=== PATIENT | female | born 1965 | race Caucasian/White ===

== ENCOUNTER 2016-05-15 16:18 | Emergency (ER) | payer BC ==
--- NOTE | 2016-05-15 17:36 | DIAGNOSTIC IMAGING REPORT ---
PROCEDURE: XR ABDOMEN 1 VIEW UPRIGHT INDICATION: DIARRHEA TECHNIQUE: AP upright view. COMPARISON: CT of the/pelvis/abdomen 10/05/2011 FINDINGS: Cholecystectomy. Mild residual stool in the ascending colon. Mild gaseous distention of the bowel in the left hemiabdomen. There is no free air, mass or suspicious calcifications. Bones are unremarkable. IMPRESSION: 1. Nonspecific bowel gas pattern 2. Cholecystectomy
--- NOTE | 2016-05-15 17:37 | DIAGNOSTIC IMAGING REPORT ---
PROCEDURE: XR SINUSES LESS THAN 3 VIEWS INDICATION: MAXILLARY PRESSURE TECHNIQUE: Single cuadra view. COMPARISON: None. FINDINGS: Paranasal sinuses are clear. IMPRESSION: 1. Normal sinuses.
--- NOTE | 2016-05-15 17:37 | DIAGNOSTIC IMAGING REPORT ---
PROCEDURE: XR SINUSES LESS THAN 3 VIEWS INDICATION: MAXILLARY PRESSURE TECHNIQUE: Single cuadra view. COMPARISON: None. FINDINGS: Paranasal sinuses are clear. IMPRESSION: 1. Normal sinuses.
--- NOTE | 2016-05-15 18:34 | ED NURSING NOTES ---
Clinical Report - Nurses Formerly [facility] [address] [place] [address] 05/15/2016 16:18 Patient: SIM BRITT TRIAGE Triage time 16:34. Acuity: LEVEL 3. Chief Complaint: SINUS CONGESTION and (Headache, diarrhea and "feel bloated"). Alert. No acute distress. --16:42 Martha Chan R.N. 16:42 05/15/16. BP: 176/68. HR: 80. RR: 20. O2 saturation: 100%. Temp: 98.2 F. Pain level now: 10/29. --16:44 Martha Chan R.N. Weight: 62.1 kg stated. Height/Length: 62 inches Per Patient. BMI: 25.1. --16:36 Martha Chan R.N. Medications HumaLOG Subcutaneous per sliding scale (1 unit drops BS by 200 pts). Lantus Subcutaneous 15units , every AM. --16:39 Martha Chan R.N. Lyrica Oral (Capsule 75 mg) 1 capsule, bid . --16:42 Martha Chan R.N. Allergies Demerol. plastic tape . Reglan. --16:39 Martha Chan R.N. Medication/allergy information source: the patient. --16:42 Martha Chan R.N. History Arrived by private vehicle. Historian: patient and family. Accompanied by family. Primary physician (zoila). Onset. (1 - 2 months). She has had sinus pain and a headache. 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 PAST MEDICAL HX: Immunizations: up-to-date. The patient has had a hysterectomy. SOCIAL HX: Light tobacco smoker (cigarette)- less than 1/2 a pack per day. No alcohol use or drug use. FALL RISK ASSESSMENT: Fall risk assessment completed. No fall risk identified. NUTRITIONAL RISK ASSESSMENT: The nutritional risk assessment revealed no deficiencies. FUNCTIONAL ASSESSMENT: Functional assessment: no impairments noted. LEARNING NEEDS ASSESSMENT: The learning needs assessment revealed no barriers. SKIN INTEGRITY ASSESSMENT: Skin integrity risk assessment completed. No skin integrity risk identified. --16:42 Martha Chan R.N. PROBLEMS: Headache . Hypoglycemia. TX/was on ventilator. Abdominal Pain. Vomiting. Coronary Artery Disease. Hyperventilation. Anxiety Reaction. Pleurisy. Atypical Chest Pain. Diabetes Mellitus. Osteoporosis. Fibromyalgia. --16:41 Martha Chan R.N. Hernia [RuleOut]. --16:41 Martha Chan R.N. ADDITIONAL SURGERIES: Appendectomy. Back Surgery. Breast benign cyst removed. Carpal Tunnel Surgery. Cholecystectomy. . Gallbladder Surgery. Hysterectomy. Knee Surgery. Multiple hand surgeries. Shoulder Surgery. --16:41 Martha Chan R.N. Interventions ID band on patient. To room. --16:42 Martha Chan R.N. PHYSICAL ASSESSMENT Ambulatory to room. Patient gowned. GENERAL / NEURO / PSYCH: Alert. Appears anxious. HEENT: No facial asymmetry noted. Pupils equal, round and reactive to light. RESPIRATORY: Respirations not labored. CVS: Capillary refill less than 2 seconds. SKIN: Skin is warm and dry. --16:45 Martha Chan R.N. NURSING PROGRESS NOTES Patient gowned. Head of bed elevated. Two patient identifiers checked. Call light placed in reach. Side rails up x 2. Bed placed in lowest position. Brakes of bed on. Patient ready for evaluation. --16:45 Martha Chan R.N. 16:57 05/15/2016 Site #1 started via IV in the left hand with an 22g angiocath, with aseptic technique and good blood return; one attempt. Blood drawn: rainbow set. Saline lock flushed with 10 mL saline. --16:57 Martha Chan R.N. 18:02 05/15/2016 Started bag #1 1000 mL IV Fluids IV NS (Saline); bolus of 500 mL over 30 minute(s) then at 250 mL/hr via site #1 via IV pump. Allergies verified and confirmed 5 rights. IV patency established flushed thoroughly pre- and post-medication administration. --18:09 Jessica Alejandre R.N. 18:05 05/15/2016 Toradol IVP 30 mg given. via site #1. Allergies verified and confirmed 5 rights. IV patency established site checked: no pain, redness, or swelling flushed thoroughly pre- and post-medication administration. --18:10 Jessica Alejandre R.N. 18:05 05/15/2016 Dilaudid (HYDROmorphone HCl PF) IVP 0.5 mg given. via site #1. Allergies verified, confirmed 5 rights and sedative warning given to the patient. IV patency established site checked: no pain, redness, or swelling flushed thoroughly pre- and post-medication administration. --18:10 Jessica Alejandre R.N. DISPOSITION / DISCHARGE 19:02 05/15/2016 Site #1 removed upon discharge. Pressure dressing applied. --19: Richelle Alvarez 19:05/15/2016 IV Fluids IV NS Discontinued: bag #1 discontinued upon discharge. Total amount infused: 800 mL. --19: Richelle Alvarez Departure time: 1900. Condition at departure: improved and stable. No learning barriers present. Discharge instructions provided and reviewed with the patient and spouse. Reviewed medication(s). Patient and spouse verbalized understanding. Written instructions provided in Panamanian. The patient was discharged by the physician. She was discharged home and accompanied by spouse. She left the Emergency Department ambulatory and via private vehicle. Spouse driving. --19:03 Richelle Alvarez 19:01 05/15/16. BP: 171/81. HR: 75. RR: 16. O2 saturation: 100%. Pain level now 5/10. --19:03 Richelle Alvarez. Locked/Released at 05/19/2016 8:55 by Jillian Ponce R.N.
--- NOTE | 2016-05-15 18:34 | ED NURSING NOTES ---
Clinical Report - Nurses [facility] [address] [place] [address] 05/15/2016 16:18 Patient: SIM BRITT TRIAGE Triage time 16:34. Acuity: LEVEL 3. Chief Complaint: SINUS CONGESTION and (Headache, diarrhea and "feel bloated"). Alert. No acute distress. --16:42 Martha Chan R.N. 16:42 05/15/16. BP: 176/68. HR: 80. RR: 20. O2 saturation: 100%. Temp: 98.2 F. Pain level now: 10/29. --16:44 Martha Chan R.N. Weight: 62.1 kg stated. Height/Length: 62 inches Per Patient. BMI: 25.1. --16:36 Martha Chan R.N. Medications HumaLOG Subcutaneous per sliding scale (1 unit drops BS by 200 pts). Lantus Subcutaneous 15units , every AM. --16:39 Martha Chan R.N. Lyrica Oral (Capsule 75 mg) 1 capsule, bid . --16:42 Martha Chan R.N. Allergies Demerol. plastic tape . Reglan. --16:39 Martha hCan R.N. Medication/allergy information source: the patient. --16:42 Martha Chan R.N. History Arrived by private vehicle. Historian: patient and family. Accompanied by family. Primary physician (zoila). Onset. (1 - 2 months). She has had sinus pain and a headache. 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 PAST MEDICAL HX: Immunizations: up-to-date. The patient has had a hysterectomy. SOCIAL HX: Light tobacco smoker (cigarette)- less than 1/2 a pack per day. No alcohol use or drug use. FALL RISK ASSESSMENT: Fall risk assessment completed. No fall risk identified. NUTRITIONAL RISK ASSESSMENT: The nutritional risk assessment revealed no deficiencies. FUNCTIONAL ASSESSMENT: Functional assessment: no impairments noted. LEARNING NEEDS ASSESSMENT: The learning needs assessment revealed no barriers. SKIN INTEGRITY ASSESSMENT: Skin integrity risk assessment completed. No skin integrity risk identified. --16:42 Martha Chan R.N. PROBLEMS: Headache . Hypoglycemia. OR/was on ventilator. Abdominal Pain. Vomiting. Coronary Artery Disease. Hyperventilation. Anxiety Reaction. Pleurisy. Atypical Chest Pain. Diabetes Mellitus. Osteoporosis. Fibromyalgia. --16:41 Martha Chan R.N. Hernia [RuleOut]. --16:41 Martha Chan R.N. ADDITIONAL SURGERIES: Appendectomy. Back Surgery. Breast benign cyst removed. Carpal Tunnel Surgery. Cholecystectomy. . Gallbladder Surgery. Hysterectomy. Knee Surgery. Multiple hand surgeries. Shoulder Surgery. --16:41 Martha Chan R.N. Interventions ID band on patient. To room. --16:42 Martha Chan R.N. PHYSICAL ASSESSMENT Ambulatory to room. Patient gowned. GENERAL / NEURO / PSYCH: Alert. Appears anxious. HEENT: No facial asymmetry noted. Pupils equal, round and reactive to light. RESPIRATORY: Respirations not labored. CVS: Capillary refill less than 2 seconds. SKIN: Skin is warm and dry. --16:45 Martha Chan R.N. NURSING PROGRESS NOTES Patient gowned. Head of bed elevated. Two patient identifiers checked. Call light placed in reach. Side rails up x 2. Bed placed in lowest position. Brakes of bed on. Patient ready for evaluation. --16:45 Martha Chan R.N. 16:57 05/15/2016 Site #1 started via IV in the left hand with an 22g angiocath, with aseptic technique and good blood return; one attempt. Blood drawn: rainbow set. Saline lock flushed with 10 mL saline. --16:57 Martha Chan R.N. 18:02 05/15/2016 Started bag #1 1000 mL IV Fluids IV NS (Saline); bolus of 500 mL over 30 minute(s) then at 250 mL/hr via site #1 via IV pump. Allergies verified and confirmed 5 rights. IV patency established flushed thoroughly pre- and post-medication administration. --18:09 Jessica Alejandre R.N. 18:05 05/15/2016 Toradol IVP 30 mg given. via site #1. Allergies verified and confirmed 5 rights. IV patency established site checked: no pain, redness, or swelling flushed thoroughly pre- and post-medication administration. --18:10 Jessica Alejandre R.N. 18:05 05/15/2016 Dilaudid (HYDROmorphone HCl PF) IVP 0.5 mg given. via site #1. Allergies verified, confirmed 5 rights and sedative warning given to the patient. IV patency established site checked: no pain, redness, or swelling flushed thoroughly pre- and post-medication administration. --18:10 Jessica Alejandre R.N. DISPOSITION / DISCHARGE 19:02 05/15/2016 Site #1 removed upon discharge. Pressure dressing applied. --19: Richelle Alvarez 19:05/15/2016 IV Fluids IV NS Discontinued: bag #1 discontinued upon discharge. Total amount infused: 800 mL. --19: Richelle Alvarez Departure time: 1900. Condition at departure: improved and stable. No learning barriers present. Discharge instructions provided and reviewed with the patient and spouse. Reviewed medication(s). Patient and spouse verbalized understanding. Written instructions provided in Lao. The patient was discharged by the physician. She was discharged home and accompanied by spouse. She left the Emergency Department ambulatory and via private vehicle. Spouse driving. --19:03 Richelle Alvarez 19:01 05/15/16. BP: 171/81. HR: 75. RR: 16. O2 saturation: 100%. Pain level now 5/10. --19:03 Richelle Alvarez. Locked/Released at 05/19/2016 8:55 by Jillian Ponce R.N.
--- NOTE | 2016-05-15 18:34 | ED ORDER SUMMARY ---
..... Patient: SIM BRITT OrderSheet [facility] VisitID: [id number] [address] [place] [address] 50y, F Registration Date/Time: 05/15/2016 ORDER SHEET Weight: 62.1 kg (stated) Allergies: Demerol, plastic tape , Reglan GENERAL ORDERS: Abdomen 1V Upright Urgent (17:13 05/15/2016 Vladislav MELÉNDEZ) (Ack 17:18 RKlilli) (17:27 RKlilli) Sinuses less than 3V (cuadra) Urgent (17:13 05/15/2016 Vladislav MELÉNDEZ) (Ack 17:18 Danika) (17:27 Danika) CBC w Diff Urgent (17:05/15/2016 Vladislav MELÉNDEZ) (Ack 17:18 Danika) CMP Urgent (17:05/15/2016 Vladislav MELÉNDEZ) (Ack 17:18 Danika) Lipase Urgent (17:05/15/2016 Vladislav MELÉNDEZ) (Ack 17:18 Danika) Amylase Urgent (17:13 05/15/2016 Vladislav MELÉNDEZ) (Ack 17:18 Danika) TSH Urgent (17:05/15/2016 Vladislav MELÉNDEZ) (Ack 17:18 Danika) MEDICATION ORDERS: IV FLUIDS: IV Saline Lock (16:57 05/15/2016 SRoberts R.N. per protocol) (16:57 SRoberts R.N.) IV NS : initial bolus 500 mL (1000 mL/hr), then 250 mL/hr for 2h (NOW); Routine (17:05/15/2016 Vladislav MELÉNDEZ) (18:09 SUEnestephy R.N.) Toradol IV 30 mg (NOW) (17:11 05/15/2016 Vladislav MELÉNDEZ) (18:10 SUEnebel R.N.) Dilaudid IV 0.5 mg (NOW) (17:05/15/2016 Vladislav MELÉNDEZ) (18:10 KKnebel R.N.) ORDER SHEET NOTES: [Electronically signed by Zaki Gomez MD (20:26 05/15/2016)] [Electronically signed by Jillian Ponce R.N. (08:55 05/19/2016)] [Electronically locked/signed by Jillian Ponce R.N. (08:55 05/19/2016)]
--- NOTE | 2016-05-15 18:34 | ED ORDER SUMMARY ---
..... Patient: SIM BRITT OrderSheet [facility] VisitID: [id number] [address] [place] [address] 50y, F Registration Date/Time: 05/15/2016 ORDER SHEET Weight: 62.1 kg (stated) Allergies: Demerol, plastic tape , Reglan GENERAL ORDERS: Abdomen 1V Upright Urgent (17:13 05/15/2016 Vladislav MELÉNDEZ) (Ack 17:18 RKlilli) (17:27 RKlilli) Sinuses less than 3V (cuadra) Urgent (17:13 05/15/2016 Vladislav MELÉNDEZ) (Ack 17:18 Danika) (17:27 Danika) CBC w Diff Urgent (17:05/15/2016 Vladislav MELÉNDEZ) (Ack 17:18 Danika) CMP Urgent (17:05/15/2016 Vladislav MELÉNDEZ) (Ack 17:18 Danika) Lipase Urgent (17:05/15/2016 Vladislav MELÉNDEZ) (Ack 17:18 Danika) Amylase Urgent (17:13 05/15/2016 Vladislav MELÉNDEZ) (Ack 17:18 Danika) TSH Urgent (17:05/15/2016 Vladislav MELÉNDEZ) (Ack 17:18 Danika) MEDICATION ORDERS: IV FLUIDS: IV Saline Lock (16:57 05/15/2016 SRoberts R.N. per protocol) (16:57 SRoberts R.N.) IV NS : initial bolus 500 mL (1000 mL/hr), then 250 mL/hr for 2h (NOW); Routine (17:05/15/2016 Vladislav MELÉNDEZ) (18:09 SUEnestephy R.N.) Toradol IV 30 mg (NOW) (17:11 05/15/2016 Vladislav MELÉNDEZ) (18:10 SUEnebel R.N.) Dilaudid IV 0.5 mg (NOW) (17:05/15/2016 Vladislav MELÉNDEZ) (18:10 KKnebel R.N.) ORDER SHEET NOTES: [Electronically signed by Zaki Gomez MD (20:26 05/15/2016)] [Electronically signed by Jillian Ponce R.N. (08:55 05/19/2016)] [Electronically locked/signed by Jillian Ponce R.N. (08:55 05/19/2016)]
--- NOTE | 2016-05-15 18:34 | ED CLINICAL REPORT ---
Clinical Report - Physicians/Mid Levels [facility] [address] [place] [address] 05/15/2016 16:18 Patient: SIM BRITT Time Seen: 16:59 May 15 2016. Arrived- By private vehicle. Historian- patient. CPT: ER phys charges level 4 (#[id number]). HISTORY OF PRESENT ILLNESS Chief Complaint: ( Onset. (1 - 2 months). She has had sinus pain and a headache.). 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 At its maximum, severity described as moderate. When seen in the E.D., severity described as moderate. Modifying factors. Not worsened by anything. Not relieved by anything. (Facial pain . Patient states she's had diarrhea for the past 2 weeks. This consists of watery brown stool. No blood. Has had facial pain and sinus congestion for the past 1-2 months. No fever sweats or chills. Says her nasal discharge is clear. Denies any allergies. She does have a fair amount of sneezing though she states. Has had sinus problems before.). Similar symptoms previously: Recent medical care: The patient was seen recently at another facility in the office (6 weeks ago). Seen for similar symptoms. Diagnosis: (Diabetic bowel and slow gastric emptying.). REVIEW OF SYSTEMS No fever, sore throat, cough, difficulty breathing or chest pain. No abdominal pain, nausea, vomiting, black stools or bloody stools. No chills, difficulty with urination, skin rash, back pain or calf pain. No blackouts or double vision. The patient has had sinus drainage, nasal congestion and a headache. She has had moderate loose stools (4 times a day.). This has occurred several times. It has been watery. All systems otherwise negative, except as recorded above. PAST HISTORY Headache . Hypoglycemia. ME/was on ventilator. Abdominal Pain. Vomiting. Coronary Artery Disease. Hyperventilation. Anxiety Reaction. Pleurisy. Atypical Chest Pain. Diabetes Mellitus. Osteoporosis. Fibromyalgia. . Hernia [RuleOut]. ADDITIONAL SURGERIES: Appendectomy. Back Surgery. Breast benign cyst removed. Carpal Tunnel Surgery. Cholecystectomy. . Gallbladder Surgery. Hysterectomy. Knee Surgery. Multiple hand surgeries. Shoulder Surgery. Medications: Lyrica Oral (Capsule 75 mg) 1 capsule, bid . HumaLOG Subcutaneous per sliding scale (1 unit drops BS by 200 pts). Lantus Subcutaneous 15units , every AM. Allergies: Demerol. plastic tape . Reglan. SOCIAL HISTORY Heavy tobacco smoker (cigarette)- less than 1 pack per day. No alcohol use or drug use. ADDITIONAL NOTES The nursing notes have been reviewed. PHYSICAL EXAM Vital Signs: 05/15/2016 16:42 BP: 176/68. HR: 80. RR: 20. O2 saturation: 100%. Temp: 98.2 F. Pain level now: 810. Appearance: Alert. Patient in mild distress. Eyes: Pupils equal, round and reactive to light. Eyes normal inspection. ENT: Tenderness present to percussion/palpation of the sinuses: moderate right and left frontal tenderness, maxillary tenderness. Ears normal. Minimal, clear nasal discharge present. Neck: Normal inspection. Neck supple. CVS: Normal heart rate and rhythm. Heart sounds normal. Pulses normal. Respiratory: No respiratory distress. Breath sounds normal. Chest nontender. Abdomen: Soft and nontender. Back: Normal inspection. Skin: Skin warm. Normal skin color. No rash. Extremities: Extremities exhibit normal ROM. No lower extremity edema. Neuro: Oriented X 3. No motor deficit. No sensory deficit. LABS, X-RAYS, AND EKG KUB: (Moderate stool.). Views: erect AP. Technique: good. The X-rays were independently viewed by me and interpreted by the radiologist. Laboratory Tests: CBC w Diff: (LISBETH: 05/15/2016 16:55) ( MsgRcvd 05/15/2016 17:28) Final results Test Result Flag Units (Reference) WHITE BLOOD COUNT 4.1 L K/uL (4.5-11.5) RED BLOOD COUNT 4.64 M/uL (4.00-5.20) HEMOGLOBIN 14.1 gm/dL (12.0-16.0) HEMATOCRIT 41.6 % (36.0-46.0) MEAN CELL VOLUME 90 fL (80-100) MEAN CORPUSCULAR HGB 30 pg (26-34) MEAN CORPUSCULAR HGB CONC 34 g/dL (31-37) RED CELL DISTRIBUTION WIDTH 12.6 % (11.6-14.8) PLATELET COUNT 195 K/uL (150-400) NEUTROPHIL % 55.6 % (50-75) LYMPH % 33.3 % (25-40) MONO % 7.6 % (3-14) EOSINOPHIL % 2.5 % (0-4) BASOPHIL % 1.0 % (0-2) CMP: (LISBETH: 05/15/2016 16:55) ( MsgRcvd 05/15/2016 17:50) Final results Test Result Flag Units (Reference) GLUCOSE 185 H mg/dL (70-110) BUN 14 mg/dL (7-18) CREATININE 0.8 mg/dL (0.6-1.3) Estimated GFR >60 mL/min Estimated GFR- >60 mL/min Note: Persistent reduction over 3 months in eGFR<60 mL/min/1.73 m2 defines CKD. Patients with eGFR values>=60 mL/min/1.73 m2 may also have CKD if evidence ofpersistent proteinuria. Additional information may be foundat www.kidney.org. SODIUM 141 mmol/L (136-145) POTASSIUM 4.2 mmol/L (3.5-5.1) CHLORIDE 104 mmol/L (98-107) CARBON DIOXIDE 30 mmol/L (21-32) CALCIUM 8.8 mg/dL (8.5-10.1) TOTAL PROTEIN 7.6 g/dL (6.4-8.2) ALBUMIN 3.9 g/dL (3.3-5.0) BILIRUBIN, TOTAL 0.3 mg/dL (0.0-1.0) ALKALINE PHOSPHATASE 50 U/L (46-116) AST (SGOT) 19 U/L (15-37) ALT (SGPT) 29 U/L (12-78) LIPASE 146 U/L (73-393) AMYLASE 59 U/L (25-115) THYROID STIMULATING HORMONE 0.483 uIU/mL (0.34-3.74) . Note - Tests: ([place] sinus: negative.). PROGRESS AND PROCEDURES Course of Care: IV NS Toradol 30 mg IV Dilaudid 0.5 mg IV Patient is stable. Symptoms better. Patient/family counseled. Disposition: Discharged. Condition: stable and improved. CLINICAL IMPRESSION Sinusitis Diarrhea. INSTRUCTIONS (Blood sugars will go up with the prednisone so will need to watch them closely.). Warnings: Further evaluation is necessary. GENERAL WARNINGS: Return or contact your physician immediately if your condition worsens or changes unexpectedly, if not improving as expected, or if other problems arise. Your Current Medications: CONTINUE TAKING THE FOLLOWING MEDICATIONS: HumaLOG Subcutaneous : per sliding scale, 1 unit drops BS by 200 pts. Lantus Subcutaneous : 15units every AM. Lyrica Oral : Capsule 75 mg, 1 capsule bid. Prescription Medications: Naprosyn 500 mg tablets: take 1 orally every 12 hours as needed for pain. Dispense twenty (20). No refills. Substitution is permissible. Augmentin 875 mg: take 1 tablet orally every 12 hours for 7 days. Dispense fourteen (14). No refills. Substitution is permissible. Prednisone 20 mg: take 2 orally every day for 5 days. Dispense ten (10). No refills. GoLytely 4 oz every 15 minutes until gone. # 1 jug. Follow-up: Follow up with your doctor in one week. Call for an appointment. Understanding of the discharge instructions verbalized by patient and family. Discharge instructions reviewed with and understanding was verbalized by spouse. (Electronically signed by Zaki Gomez MD 05/15/2016 20:26)
--- NOTE | 2016-05-15 18:34 | ED CLINICAL REPORT ---
Clinical Report - Physicians/Mid Levels [facility] [address] [place] [address] 05/15/2016 16:18 Patient: SIM BRITT Time Seen: 16:59 May 15 2016. Arrived- By private vehicle. Historian- patient. CPT: ER phys charges level 4 (#[id number]). HISTORY OF PRESENT ILLNESS Chief Complaint: ( Onset. (1 - 2 months). She has had sinus pain and a headache.). 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 At its maximum, severity described as moderate. When seen in the E.D., severity described as moderate. Modifying factors. Not worsened by anything. Not relieved by anything. (Facial pain . Patient states she's had diarrhea for the past 2 weeks. This consists of watery brown stool. No blood. Has had facial pain and sinus congestion for the past 1-2 months. No fever sweats or chills. Says her nasal discharge is clear. Denies any allergies. She does have a fair amount of sneezing though she states. Has had sinus problems before.). Similar symptoms previously: Recent medical care: The patient was seen recently at another facility in the office (6 weeks ago). Seen for similar symptoms. Diagnosis: (Diabetic bowel and slow gastric emptying.). REVIEW OF SYSTEMS No fever, sore throat, cough, difficulty breathing or chest pain. No abdominal pain, nausea, vomiting, black stools or bloody stools. No chills, difficulty with urination, skin rash, back pain or calf pain. No blackouts or double vision. The patient has had sinus drainage, nasal congestion and a headache. She has had moderate loose stools (4 times a day.). This has occurred several times. It has been watery. All systems otherwise negative, except as recorded above. PAST HISTORY Headache . Hypoglycemia. [place]/was on ventilator. Abdominal Pain. Vomiting. Coronary Artery Disease. Hyperventilation. Anxiety Reaction. Pleurisy. Atypical Chest Pain. Diabetes Mellitus. Osteoporosis. Fibromyalgia. . Hernia [RuleOut]. ADDITIONAL SURGERIES: Appendectomy. Back Surgery. Breast benign cyst removed. Carpal Tunnel Surgery. Cholecystectomy. . Gallbladder Surgery. Hysterectomy. Knee Surgery. Multiple hand surgeries. Shoulder Surgery. Medications: Lyrica Oral (Capsule 75 mg) 1 capsule, bid . HumaLOG Subcutaneous per sliding scale (1 unit drops BS by 200 pts). Lantus Subcutaneous 15units , every AM. Allergies: Demerol. plastic tape . Reglan. SOCIAL HISTORY Heavy tobacco smoker (cigarette)- less than 1 pack per day. No alcohol use or drug use. ADDITIONAL NOTES The nursing notes have been reviewed. PHYSICAL EXAM Vital Signs: 05/15/2016 16:42 BP: 176/68. HR: 80. RR: 20. O2 saturation: 100%. Temp: 98.2 F. Pain level now: 810. Appearance: Alert. Patient in mild distress. Eyes: Pupils equal, round and reactive to light. Eyes normal inspection. ENT: Tenderness present to percussion/palpation of the sinuses: moderate right and left frontal tenderness, maxillary tenderness. Ears normal. Minimal, clear nasal discharge present. Neck: Normal inspection. Neck supple. CVS: Normal heart rate and rhythm. Heart sounds normal. Pulses normal. Respiratory: No respiratory distress. Breath sounds normal. Chest nontender. Abdomen: Soft and nontender. Back: Normal inspection. Skin: Skin warm. Normal skin color. No rash. Extremities: Extremities exhibit normal ROM. No lower extremity edema. Neuro: Oriented X 3. No motor deficit. No sensory deficit. LABS, X-RAYS, AND EKG KUB: (Moderate stool.). Views: erect AP. Technique: good. The X-rays were independently viewed by me and interpreted by the radiologist. Laboratory Tests: CBC w Diff: (LISBETH: 05/15/2016 16:55) ( MsgRcvd 05/15/2016 17:28) Final results Test Result Flag Units (Reference) WHITE BLOOD COUNT 4.1 L K/uL (4.5-11.5) RED BLOOD COUNT 4.64 M/uL (4.00-5.20) HEMOGLOBIN 14.1 gm/dL (12.0-16.0) HEMATOCRIT 41.6 % (36.0-46.0) MEAN CELL VOLUME 90 fL (80-100) MEAN CORPUSCULAR HGB 30 pg (26-34) MEAN CORPUSCULAR HGB CONC 34 g/dL (31-37) RED CELL DISTRIBUTION WIDTH 12.6 % (11.6-14.8) PLATELET COUNT 195 K/uL (150-400) NEUTROPHIL % 55.6 % (50-75) LYMPH % 33.3 % (25-40) MONO % 7.6 % (3-14) EOSINOPHIL % 2.5 % (0-4) BASOPHIL % 1.0 % (0-2) CMP: (LISBETH: 05/15/2016 16:55) ( MsgRcvd 05/15/2016 17:50) Final results Test Result Flag Units (Reference) GLUCOSE 185 H mg/dL (70-110) BUN 14 mg/dL (7-18) CREATININE 0.8 mg/dL (0.6-1.3) Estimated GFR >60 mL/min Estimated GFR- >60 mL/min Note: Persistent reduction over 3 months in eGFR<60 mL/min/1.73 m2 defines CKD. Patients with eGFR values>=60 mL/min/1.73 m2 may also have CKD if evidence ofpersistent proteinuria. Additional information may be foundat www.kidney.org. SODIUM 141 mmol/L (136-145) POTASSIUM 4.2 mmol/L (3.5-5.1) CHLORIDE 104 mmol/L (98-107) CARBON DIOXIDE 30 mmol/L (21-32) CALCIUM 8.8 mg/dL (8.5-10.1) TOTAL PROTEIN 7.6 g/dL (6.4-8.2) ALBUMIN 3.9 g/dL (3.3-5.0) BILIRUBIN, TOTAL 0.3 mg/dL (0.0-1.0) ALKALINE PHOSPHATASE 50 U/L (46-116) AST (SGOT) 19 U/L (15-37) ALT (SGPT) 29 U/L (12-78) LIPASE 146 U/L (73-393) AMYLASE 59 U/L (25-115) THYROID STIMULATING HORMONE 0.483 uIU/mL (0.34-3.74) . Note - Tests: ([place] sinus: negative.). PROGRESS AND PROCEDURES Course of Care: IV NS Toradol 30 mg IV Dilaudid 0.5 mg IV Patient is stable. Symptoms better. Patient/family counseled. Disposition: Discharged. Condition: stable and improved. CLINICAL IMPRESSION Sinusitis Diarrhea. INSTRUCTIONS (Blood sugars will go up with the prednisone so will need to watch them closely.). Warnings: Further evaluation is necessary. GENERAL WARNINGS: Return or contact your physician immediately if your condition worsens or changes unexpectedly, if not improving as expected, or if other problems arise. Your Current Medications: CONTINUE TAKING THE FOLLOWING MEDICATIONS: HumaLOG Subcutaneous : per sliding scale, 1 unit drops BS by 200 pts. Lantus Subcutaneous : 15units every AM. Lyrica Oral : Capsule 75 mg, 1 capsule bid. Prescription Medications: Naprosyn 500 mg tablets: take 1 orally every 12 hours as needed for pain. Dispense twenty (20). No refills. Substitution is permissible. Augmentin 875 mg: take 1 tablet orally every 12 hours for 7 days. Dispense fourteen (14). No refills. Substitution is permissible. Prednisone 20 mg: take 2 orally every day for 5 days. Dispense ten (10). No refills. GoLytely 4 oz every 15 minutes until gone. # 1 jug. Follow-up: Follow up with your doctor in one week. Call for an appointment. Understanding of the discharge instructions verbalized by patient and family. Discharge instructions reviewed with and understanding was verbalized by spouse. (Electronically signed by Zaki Gomez MD 05/15/2016 20:26)
--- NOTE | 2016-05-19 08:56 | ED MAR SUMMARY ---
..... Medication Administration Record [facility] [address] [address] Patient: SIM BRITT Visit ID: [id number] 50y, F Weight: 62.1 kg Height/Length: 62 in BMI: 25.1 ALLERGIES: Demerol, plastic tape , Reglan Start 18:05/15/2016 Jessica Alejandre R.N., Stop 19:05/15/2016 Richelle Alvarez, Medication Administered: IV NS (SALINE), Dose: IV Fluids, Rate: 250 mL/hr, Bolus: 500 mL over 30 minute(s), Dispensed: 1000 mL bag, Site: #1 left hand. Medication Ordered: IV NS : initial bolus 500 mL (1000 mL/hr), then 250 mL/hr for 2h (NOW); Routine. Given 18:05/15/2016 Jessica Alejandre R.N. Medication Administered: TORADOL [IVP], Dose: 30 mg IVP, Site: #1 left hand. Medication Ordered: Toradol IV 30 mg (NOW). Given 18:05/15/2016 Jessica Alejandre R.N. Medication Administered: DILAUDID [IVP] (HYDROMORPHONE HCL PF), Dose: 0.5 mg IVP, Site: #1 left hand. Medication Ordered: Dilaudid IV 0.5 mg (NOW).
--- NOTE | 2016-05-19 08:56 | ED DISCHARGE INSTRUCTIONS ---
Patient: SIM BRITT General Instructions [facility] VisitID: [id number] [address] [place] [address] 50y, F Registration Date/Time: 05/15/2016 Sinusitis Diarrhea. INSTRUCTIONS (Blood sugars will go up with the prednisone so will need to watch them closely.). Warnings: Further evaluation is necessary. GENERAL WARNINGS: Return or contact your physician immediately if your condition worsens or changes unexpectedly, if not improving as expected, or if other problems arise. Your Current Medications: CONTINUE TAKING THE FOLLOWING MEDICATIONS: HumaLOG Subcutaneous : per sliding scale, 1 unit drops BS by 200 pts. Lantus Subcutaneous : 15units every AM. Lyrica Oral : Capsule 75 mg, 1 capsule bid. Prescription Medications: Naprosyn 500 mg tablets: take 1 orally every 12 hours as needed for pain. Dispense twenty (20). No refills. Substitution is permissible. Augmentin 875 mg: take 1 tablet orally every 12 hours for 7 days. Dispense fourteen (14). No refills. Substitution is permissible. Prednisone 20 mg: take 2 orally every day for 5 days. Dispense ten (10). No refills. GoLytely 4 oz every 15 minutes until gone. # 1 jug. Follow-up: Follow up with your doctor in one week. Call for an appointment. Understanding of the discharge instructions verbalized by patient and family. Discharge instructions reviewed with and understanding was verbalized by spouse. (Electronically signed by Zaki Gomez MD 05/15/2016 20:26)
--- NOTE | 2016-05-19 08:56 | ED DISCHARGE INSTRUCTIONS ---
Patient: SIM BRITT General Instructions [facility] VisitID: [id number] [address] [place] [address] 50y, F Registration Date/Time: 05/15/2016 Sinusitis Diarrhea. INSTRUCTIONS (Blood sugars will go up with the prednisone so will need to watch them closely.). Warnings: Further evaluation is necessary. GENERAL WARNINGS: Return or contact your physician immediately if your condition worsens or changes unexpectedly, if not improving as expected, or if other problems arise. Your Current Medications: CONTINUE TAKING THE FOLLOWING MEDICATIONS: HumaLOG Subcutaneous : per sliding scale, 1 unit drops BS by 200 pts. Lantus Subcutaneous : 15units every AM. Lyrica Oral : Capsule 75 mg, 1 capsule bid. Prescription Medications: Naprosyn 500 mg tablets: take 1 orally every 12 hours as needed for pain. Dispense twenty (20). No refills. Substitution is permissible. Augmentin 875 mg: take 1 tablet orally every 12 hours for 7 days. Dispense fourteen (14). No refills. Substitution is permissible. Prednisone 20 mg: take 2 orally every day for 5 days. Dispense ten (10). No refills. GoLytely 4 oz every 15 minutes until gone. # 1 jug. Follow-up: Follow up with your doctor in one week. Call for an appointment. Understanding of the discharge instructions verbalized by patient and family. Discharge instructions reviewed with and understanding was verbalized by spouse. (Electronically signed by Zaki Gomez MD 05/15/2016 20:26)
--- NOTE | 2016-05-19 08:56 | ED MAR SUMMARY ---
..... Medication Administration Record [facility] [address] [place] [address] Patient: SIM BRITT Visit ID: [id number] 50y, F Weight: 62.1 kg Height/Length: 62 in BMI: 25.1 ALLERGIES: Demerol, plastic tape , Reglan Start 18:05/15/2016 Jessica Alejandre R.N., Stop 19:05/15/2016 Richelle Alvarez, Medication Administered: IV NS (SALINE), Dose: IV Fluids, Rate: 250 mL/hr, Bolus: 500 mL over 30 minute(s), Dispensed: 1000 mL bag, Site: #1 left hand. Medication Ordered: IV NS : initial bolus 500 mL (1000 mL/hr), then 250 mL/hr for 2h (NOW); Routine. Given 18:05/15/2016 Jessica Alejandre R.N. Medication Administered: TORADOL [IVP], Dose: 30 mg IVP, Site: #1 left hand. Medication Ordered: Toradol IV 30 mg (NOW). Given 18:05/15/2016 Jessica Alejandre R.N. Medication Administered: DILAUDID [IVP] (HYDROMORPHONE HCL PF), Dose: 0.5 mg IVP, Site: #1 left hand. Medication Ordered: Dilaudid IV 0.5 mg (NOW).
--- NOTE | 2016-05-19 08:56 | ED MED RECONCILIATION SUMMARY ---
Patient: SIM BRITT Medication Reconciliation Report [facility] VisitID: [id number] [address] [place] [address] 50y, F Registration Date/Time: 05/15/2016 Weight: 62.1 kg Height/Length: 62 in. BMI: 25.1 ALLERGIES: Demerol, plastic tape , Reglan The patient's Home Medications are listed below: CONTINUE TAKING THE FOLLOWING MEDICATIONS: HumaLOG Subcutaneous per sliding scale, 1 unit drops BS by 200 pts Lantus Subcutaneous 15units , every AM Lyrica Oral (75 mg) 1 capsule, bid The source(s) of the original Home Medication information: patient The following Medications were given to the patient in the Emergency Department: IV NS IV Fluids bolus 500 mL over 30 minute(s), then 250 mL/hr, administered: 05/15/2016 6:02:00 PM Toradol [IVP] IVP 30 mg, administered: 05/15/2016 6:05:00 PM Dilaudid [IVP] IVP 0.5 mg, administered: 05/15/2016 6:05:00 PM The following Medications were prescribed to the patient: GoLytely 4 oz every 15 minutes until gone. # 1 jug. -- Zaki Gomez MD Naprosyn 500 mg tablets: take 1 orally every 12 hours as needed for pain. Dispense twenty (20). No refills. Substitution is permissible. -- Zaki Gomez MD Augmentin 875 mg: take 1 tablet orally every 12 hours for 7 days. Dispense fourteen (14). No refills. Substitution is permissible. -- Zaki Gomez MD Prednisone 20 mg: take 2 orally every day for 5 days. Dispense ten (10). No refills. -- Zaki Gomez MD
--- NOTE | 2016-05-19 08:56 | ED MED RECONCILIATION SUMMARY ---
Patient: SIM BRITT Medication Reconciliation Report [facility] VisitID: [id number] [address] [place] [address] 50y, F Registration Date/Time: 05/15/2016 Weight: 62.1 kg Height/Length: 62 in. BMI: 25.1 ALLERGIES: Demerol, plastic tape , Reglan The patient's Home Medications are listed below: CONTINUE TAKING THE FOLLOWING MEDICATIONS: HumaLOG Subcutaneous per sliding scale, 1 unit drops BS by 200 pts Lantus Subcutaneous 15units , every AM Lyrica Oral (75 mg) 1 capsule, bid The source(s) of the original Home Medication information: patient The following Medications were given to the patient in the Emergency Department: IV NS IV Fluids bolus 500 mL over 30 minute(s), then 250 mL/hr, administered: 05/15/2016 6:02:00 PM Toradol [IVP] IVP 30 mg, administered: 05/15/2016 6:05:00 PM Dilaudid [IVP] IVP 0.5 mg, administered: 05/15/2016 6:05:00 PM The following Medications were prescribed to the patient: GoLytely 4 oz every 15 minutes until gone. # 1 jug. -- Zaki Gomez MD Naprosyn 500 mg tablets: take 1 orally every 12 hours as needed for pain. Dispense twenty (20). No refills. Substitution is permissible. -- Zaki Gomez MD Augmentin 875 mg: take 1 tablet orally every 12 hours for 7 days. Dispense fourteen (14). No refills. Substitution is permissible. -- Zaki Gomez MD Prednisone 20 mg: take 2 orally every day for 5 days. Dispense ten (10). No refills. -- Zaki Gomez MD
== END 2016-05-15 19:00 | disposition home or self-care (01) ==
LOC: ED SRH 16:18
DX: J01.90 Acute sinusitis, unspecified (principal); R19.7 Diarrhea, unspecified; E11.9 Type 2 diabetes mellitus without complications; I25.10 Atherosclerotic heart disease of native coronary artery without angina pectoris; Z79.4 Long term (current) use of insulin; Z79.899 Other long term (current) drug therapy; Z88.5 Allergy status to narcotic agent; Z88.8 Allergy status to other drugs, medicaments and biological substances; F17.210 Nicotine dependence, cigarettes, uncomplicated; Z91.048 Other nonmedicinal substance allergy status
CPT/HCPCS: 90100; 92235; 92530; 93140; 95059

== ENCOUNTER 2016-07-28 18:41 | Emergency (ER) | payer BC ==
--- NOTE | 2016-07-28 19:39 | DIAGNOSTIC IMAGING REPORT ---
PROCEDURE: XR CHEST 1 VIEW INDICATION: CHEST PAIN TECHNIQUE: Portable AP view 07:23 p.m. COMPARISON: Chest x-ray 10/04/2011. FINDINGS: There are two stable calcified right upper lobe granulomas. Heart and mediastinum are normal. Thorax is normal. IMPRESSION: 1. No acute changes 2. Old granulomatous disease.
--- NOTE | 2016-07-28 20:35 | ED ORDER SUMMARY ---
..... 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 verbal order read back to Hilary Koo) (19:13 Laurita R.N.) EKG - ER Stat (19:12 07/28/2016 Real Lawler.N. verbal order read back to Hilary Koo) (19:13 Laurita R.N.) Cardiac Panel Stat (19:13 07/28/2016 Real Lawler.N. verbal order read back to Hilary Koo) (Ack 19:16 AMcQuoid ER Tech1) (19:17 AMcQuoid ER Tech1) Chest 1V Urgent (19:16 07/28/2016 Hilary Koo) (Ack 19:17 AMcQuoid ER Tech1) (19:26 EHassan R.N.) MEDICATION ORDERS: Aspirin PO 324 mg (NOW) (19:11 07/28/2016 Real Lawler.N. verbal order read back to Hilary Koo) (19:13 Fann R.N.) Insulin Reg Subcut 2 units (HIGH ALERT MEDICATION, NOW) (20:10 07/28/2016 Hilary Koo) (20:29 Yasmine R.N.) IV FLUIDS: IV Saline Lock (19:12 07/28/2016 Real R.NSri verbal order read back to Hilary Koo) (19:13 EHassan R.N.) ORDER SHEET NOTES: This document has not been locked and should not be saved in the medical record.
--- NOTE | 2016-07-28 20:35 | ED NURSING NOTES ---
Clinical Report - Nurses [facility] [address] [place] [address] 07/28/2016 18:43 Patient: SIM BRITT TRIAGE Triage time 1849 PM. Acuity: LEVEL 2. Chief Complaint: CHEST PAIN. Alert. No acute distress. SEPSIS SCREEN: Sepsis Screen. Negative (no infection suspected/documented). MOHSEN COMA SCORE: Rainbow Coma Scale: 15- eyes open spontaneously (4); best verbal response- oriented x 4 (5); best motor response- obeys commands (6). --18:57 Roseline Mcnamara R.N. 18:48 07/28/16. BP: 168/73 (regular adult cuff) taken on the left arm, via an automated monitor, while lying. HR: 58. RR: 18. O2 saturation: 96% on room air. Temp: 98.6 F (oral). Pain level now: 10. --18:57 Roseline Mcnamara R.N. Weight: 63.5 kg stated. Height/Length: 62 inches Per Patient. BMI: 25.6. --18:53 Roseline Mcnamara R.N. Medications HumaLOG Subcutaneous per sliding scale (1 unit drops BS by 200 pts). Lantus Subcutaneous 15units , every AM. Lyrica Oral (Capsule 75 mg) 1 capsule, bid . --18:52 Roseline Mcnamara R.N. Protonix Oral. --18:52 Roseline Mcnamara R.N. Medication/allergy information source: the patient. --18:57 Roseline Mcnamara R.N. Allergies Demerol. plastic tape . Reglan. --18:52 Roseline Mcnamara R.N. History Arrived by private vehicle, and accompanied by family. Primary physician (Dr. Marta Hernandez ([facility])). ( Pt states was arguing with her this evening approximately 20 minutes ago, when she felt "like her heart was coming out her chest" SOB, blurred vision, dizzy. P). This started just prior to arrival. She has had difficulty breathing and nausea. Reports experiencing sweating episodes. No vomiting, fever or cough. Treatment ORIENTATION & MOBILITY SPECIALIST: None. PAST MEDICAL HX: Immunizations: up-to-date. SOCIAL HX: Heavy tobacco smoker (cigarette)- less than 1 pack per day. History of drug use: marijuana. Recently used drugs just prior to arrival. No alcohol use. No infectious disease exposure. ABUSE ASSESSMENT: No report of abuse. SELF HARM ASSESSMENT: A self harm assessment was performed. The patient answered "no" to the question "Do you have thoughts of harming or killing yourself?" and "Have you recently had thoughts about harming or killing others?". FALL RISK ASSESSMENT: Fall risk assessment completed. No fall risk identified. NUTRITIONAL RISK ASSESSMENT: The nutritional risk assessment revealed no deficiencies. FUNCTIONAL ASSESSMENT: Functional assessment: no impairments noted. LEARNING NEEDS ASSESSMENT: The learning needs assessment revealed no barriers. SKIN INTEGRITY ASSESSMENT: Skin integrity risk assessment completed. No skin integrity risk identified. --18:57 Roseline Mcnamara R.N. ADDITIONAL SURGERIES: Appendectomy. Back Surgery. Brain surgery - malformation. Breast benign cyst removed. Carpal Tunnel Surgery. Cholecystectomy. . Gallbladder Surgery. Hysterectomy. Knee Surgery. Multiple hand surgeries. Shoulder Surgery. --18:53 Roseline Mcnamara R.N. Interventions ID band on patient. --18:57 Roseline Mcnamara R.N. PHYSICAL ASSESSMENT Ambulatory to room. GENERAL / NEURO / PSYCH: Alert. Oriented X 4. Appears in pain and anxious. HEENT: Mucous membranes are pink. RESPIRATORY: Respirations not labored. Chest nontender. Breath sounds within normal limits. CVS: Pulses within normal limits. Capillary refill less than 2 seconds. GI / : The patient has had nausea. Abdomen soft and nontender. EXTREMITIES: No lower extremity edema. SKIN: Skin is warm and dry. Normal skin turgor. --18:59 Roseline Mcnamara R.N. NURSING PROGRESS NOTES 18:56 07/28/2016 Site #1 started via IV in the left hand with an 20g angiocath; one attempt. Blood drawn: rainbow set. Labeled in the presence of the patient and sent to the lab. --19:01 Roseline Mcnamara R.N. The initial plan of care for this patient has been created This plan of care was discussed with the patient. Monitoring of patient in place. EKG time: (1857 PM). EKG was performed by a tech and shown to the ED physician. Patient ID band checked for patient name, birthdate and medical record number: patient confirmed. Blood samples drawn from the left hand by nurse per protocol ; labeled in presence of the patient: rainbow set. Patient gowned. Warming measures: blanket applied. Reassurance given. Patient identifiers checked. Call light placed in reach. Side rails up x 1. Bed placed in lowest position. Brakes of bed on. --19: Roseline Mcnamara R.N. Patient ready for evaluation- ED physician notified. --19: Roseline Mcnamara R.N. 19:03 07/28/2016 Aspirin PO Capsules 325 mg given. Allergies verified and confirmed 5 rights. --19:13 Roseline Mcnamara R.N. 19:26 07/28/16. BP: 125/84 taken on the left arm, via an automated monitor, while lying. HR: 88. RR: 15. O2 saturation: 98%. Pain level now: 07/29. --19:27 Roseline Mcnamara R.N. Cardiac rhythm: normal sinus rhythm. glass scullion, pulse oximeter and NIBP monitor placed on patient. Reassurance given. GENERAL / NEURO / PSYCH: The patient reports anxiety. HEENT: The patient reports headache. RESPIRATORY: Denies difficulty breathing. CVS: The patient reports chest pain. GI / : The patient reports nausea. Call light placed in reach. --19:27 Roseline Mcnamara R.N. 19:45 07/28/16. BP: 146/76 (regular adult cuff) taken on the left arm, via an automated monitor, while lying. HR: 84. RR: 14. O2 saturation: 98%. Pain level now: 05/29. --19:53 Roseline Mcnamara R.N. ( Pt states feeling "better less pain and pressure" waiting on lab work to be returned. Will monitor). GENERAL / NEURO / PSYCH: The patient reports anxiety. HEENT: The patient reports headache. RESPIRATORY: Denies difficulty breathing. CVS: Denies chest pain. GI / : Denies nausea. --19:53 Roseline Mcnamara R.N. 20:27 07/28/2016 Insulin Reg Subcutaneous 2 unit given. Given in the right deltoid. Allergies verified and confirmed 5 rights. --20:29 Martha Chan R.N. 21:06 07/28/2016 Morphine IVP 4 mg given over 1 minute(s) via site #1. Allergies verified, confirmed 5 rights and sedative warning given to the patient. IV patency established. IV site checked: no pain, redness, or swelling. IV flushed thoroughly pre- and post-medication administration. IVP given by RN. --21:06 Roseline Mcnamara R.N. DISPOSITION / DISCHARGE Cardiac rhythm: normal sinus rhythm. Condition at departure: improved and stable. No learning barriers present. Discharge instructions provided and reviewed with the patient and spouse. Reviewed medication(s) side effects, precautions, dosing and course information. Prescription(s) given to the patient. Patient verbalized understanding. Written instructions provided in Sami. No treatment instructions or referrals given to the patient. The patient was discharged by the physician. She was discharged home and accompanied by spouse and parent. She left the Emergency Department ambulatory and via private vehicle. Spouse driving. --21:11 Roseline Mcnamara R.N. 21:06 07/28/16. BP: 150/63. HR: 81. RR: 14. Temp: 98.1 F. Pain level now: 05/29. --21:11 Roseline Mcnamara R.N. Departure time: 2049 PM. --21:24 Roseline Mcnamara R.N. 20:54 07/28/16. O2 saturation: 98% on room air. --21:24 Roseline Mcnamara R.N. Locked/Released at 07/28/2016 21:24 by Roseline Mcnamara R.N.
--- NOTE | 2016-07-28 20:35 | ED CLINICAL REPORT ---
Clinical Report - Physicians/Mid Levels [facility] [address] [place] [address] 07/28/2016 18:43 Patient: SIM BRITT *This is a preliminary document and is subject to change Time Seen: 18:54; initial patient contact. Arrived- By private vehicle. Historian- patient. HISTORY OF PRESENT ILLNESS Chief Complaint: CHEST PAIN. At its maximum, severity described as moderate. When seen in the E.D., severity described as mild. Modifying factors. Not worsened by anything. Not relieved by anything. This started today and is still present and worsening. (persistent). It was gradual in onset and has been constant. It is described as "pain" and it is described as located in the left chest area and radiating to the left axilla. No nausea, vomiting, difficulty breathing or diaphoresis. Similar symptoms previously: None. Recent medical care: Not recently seen/assessed. REVIEW OF SYSTEMS No fever, chills, cough, pedal edema or calf pain. All systems otherwise negative, except as recorded above. PAST HISTORY Headache . Hypoglycemia. NH/was on ventilator. Abdominal Pain. Vomiting. Coronary Artery Disease. Hyperventilation. Anxiety Reaction. Pleurisy. Atypical Chest Pain. Diabetes Mellitus. Osteoporosis. Fibromyalgia. . Hernia Appendectomy Back Surgery. Brain surgery - malformation. Breast benign cyst removed. Carpal Tunnel Surgery. Cholecystectomy. . Gallbladder Surgery. Hysterectomy. Knee Surgery. Multiple hand surgeries. Shoulder Surgery. SOCIAL HISTORY Current every day smoker. No alcohol use or drug use. ADDITIONAL NOTES The nursing notes have been reviewed. PHYSICAL EXAM Vital Signs: 07/28/2016 18:48 BP: 168/73. HR: 58. RR: 18. O2 saturation: 96%. Temp: 98.6 F. Pain level now: 5/10. Have been reviewed. Hypertensive. Bradycardic. Respiratory rate normal. Temperature normal. Appearance: Alert. Oriented X3. No acute distress. Eyes: Eyes normal inspection. ENT: Pharynx normal. Neck: Normal inspection. No JVD. CVS: Normal heart rate and rhythm. Heart sounds normal. Pulses normal. Respiratory: No respiratory distress. Chest pain reproducible with palpation of the anterior and lateral chest wall and with movement of the left arm. Moderate left upper chest wall tenderness. The tenderness reproduces the patient's subjective complaint. Breath sounds normal. No decreased air movement, rales, rhonchi, wheezes or prolonged expiration. Abdomen: Soft and nontender. Bowel sounds normal. No mass. Skin: Skin warm and dry. Normal skin color. Extremities: No calf tenderness. No lower extremity edema. Neuro: Oriented X 3. LABS, X-RAYS, AND EKG EKG: EKG time: (1851). Narrow-complex tachycardia (ventricular rate 101). Sinus tachycardia. Normal P waves. Normal VENKAT. Normal QRS complex. Normal axis. Normal ST and T waves, QT and QTc. Prior EKG unavailable. The study has been interpreted contemporaneously by me. The study has been independently viewed by me. The EKG appears to be a good tracing. Interpretation time: 1851. Chest X-ray: No acute disease. (1. No acute changes 2. Old granulomatous disease.). Views: AP. Technique: good. The X-rays were independently viewed by me and interpreted contemporaneously by me. A comparison with prior films reveals that the findings are unchanged. Laboratory Tests: CBC w Diff: (LISBETH: 07/28/2016 18:55) ( MsgRcvd 07/28/2016 19:49) Final results Test Result Flag Units (Reference) WHITE BLOOD COUNT 5.8 K/uL (4.5-11.5) RED BLOOD COUNT 4.41 M/uL (4.00-5.20) HEMOGLOBIN 13.6 gm/dL (12.0-16.0) HEMATOCRIT 40.0 % (36.0-46.0) MEAN CELL VOLUME 91 fL (80-100) MEAN CORPUSCULAR HGB 31 pg (26-34) MEAN CORPUSCULAR HGB CONC 34 g/dL (31-37) RED CELL DISTRIBUTION WIDTH 12.2 % (11.6-14.8) PLATELET COUNT 222 K/uL (150-400) NEUTROPHIL % 50.4 % (50-75) LYMPH % 38.5 % (25-40) MONO % 8.0 % (3-14) EOSINOPHIL % 2.5 % (0-4) BASOPHIL % 0.6 % (0-2) CHEM 13 PANEL: (LISBETH: 07/28/2016 18:55) ( MsgRcvd 07/28/2016 20:04) Final results Test Result Flag Units (Reference) GLUCOSE 319 H mg/dL (70-110) BUN 8 mg/dL (7-18) CREATININE 1.0 mg/dL (0.6-1.3) Estimated GFR >60 mL/min Estimated GFR- >60 mL/min Note: Persistent reduction over 3 months in eGFR<60 mL/min/1.73 m2 defines CKD. Patients with eGFR values>=60 mL/min/1.73 m2 may also have CKD if evidence ofpersistent proteinuria. Additional information may be foundat www.kidney.org. SODIUM 139 mmol/L (136-145) POTASSIUM 4.0 mmol/L (3.5-5.1) CHLORIDE 103 mmol/L (98-107) CARBON DIOXIDE 31 mmol/L (21-32) CALCIUM 8.7 mg/dL (8.5-10.1) TOTAL PROTEIN 7.4 g/dL (6.4-8.2) ALBUMIN 3.9 g/dL (3.3-5.0) BILIRUBIN, TOTAL 0.3 mg/dL (0.0-1.0) ALKALINE PHOSPHATASE 52 U/L (46-116) AST (SGOT) 18 U/L (15-37) ALT (SGPT) 31 U/L (12-78) MAGNESIUM 2.0 mg/dL (1.8-2.4) CPK 172 U/L (24-260) TROPONIN I <0.05 ng/mL (0.00-1.5) TROPONIN REFERENCE RANGE:<0.1 NEGATIVE0.1-1.5 INDETERMINANT>1.[address]IT[address] . [address]
--- NOTE | 2016-07-28 20:35 | ED ORDER SUMMARY ---
..... Patient: SIM BRITT OrderSheet [facility] VisitID: [id number] [address] [place] [address] 50y, F Registration Date/Time: 07/28/2016 ORDER SHEET Weight: 63.5 kg (stated) Allergies: Demerol, plastic tape , Reglan GENERAL ORDERS: Meal Cook (Continuous) (Chest Pain) (19:12 07/28/2016 Real R.N. verbal order read back to Hilary Koo) (19:13 Laurita R.N.) EKG - ER Stat (19:12 07/28/2016 Real Lawler.N. verbal order read back to Hilary Koo) (19:13 Laurita R.N.) Cardiac Panel Stat (19:13 07/28/2016 Real Lawler.N. verbal order read back to Hilary Koo) (Ack 19:16 AMcQuoid ER Tech1) (19:17 AMcQuoid ER Tech1) Chest 1V Urgent (19:16 07/28/2016 Hilary Koo) (Ack 19:17 AMcQuoid ER Tech1) (19:26 EHassan R.N.) MEDICATION ORDERS: Aspirin PO 324 mg (NOW) (19:11 07/28/2016 Real Lawler.N. verbal order read back to Hilary Koo) (19:13 Fann R.N.) Insulin Reg Subcut 2 units (HIGH ALERT MEDICATION, NOW) (20:10 07/28/2016 Hilary Koo) (20:29 Yasmine R.N.) IV FLUIDS: IV Saline Lock (19:12 07/28/2016 Real R.NSri verbal order read back to Hilary Koo) (19:13 EHassan R.N.) ORDER SHEET NOTES: This document has not been locked and should not be saved in the medical record.
--- NOTE | 2016-07-28 20:35 | ED NURSING NOTES ---
Clinical Report - Nurses [facility] [address] [place] [address] 07/28/2016 18:43 Patient: SIM BRITT TRIAGE Triage time 1849 PM. Acuity: LEVEL 2. Chief Complaint: CHEST PAIN. Alert. No acute distress. SEPSIS SCREEN: Sepsis Screen. Negative (no infection suspected/documented). MOHSEN COMA SCORE: [place] Coma Scale: 15- eyes open spontaneously (4); best verbal response- oriented x 4 (5); best motor response- obeys commands (6). --18:57 Roseline Mcnamara R.N. 18:48 07/28/16. BP: 168/73 (regular adult cuff) taken on the left arm, via an automated monitor, while lying. HR: 58. RR: 18. O2 saturation: 96% on room air. Temp: 98.6 F (oral). Pain level now: 10. --18:57 Roseline Mcnamara R.N. Weight: 63.5 kg stated. Height/Length: 62 inches Per Patient. BMI: 25.6. --18:53 Roseline Mcnamara R.N. Medications HumaLOG Subcutaneous per sliding scale (1 unit drops BS by 200 pts). Lantus Subcutaneous 15units , every AM. Lyrica Oral (Capsule 75 mg) 1 capsule, bid . --18:52 Roseline Mcnamara R.N. Protonix Oral. --18:52 Roseline Mcnamara R.N. Medication/allergy information source: the patient. --18:57 Roseline Mcnamara R.N. Allergies Demerol. plastic tape . Reglan. --18:52 Roseline Mcnamara R.N. History Arrived by private vehicle, and accompanied by family. Primary physician (Dr. Marta Hernandez ([facility])). ( Pt states was arguing with her this evening approximately 20 minutes ago, when she felt "like her heart was coming out her chest" SOB, blurred vision, dizzy. P). This started just prior to arrival. She has had difficulty breathing and nausea. Reports experiencing sweating episodes. No vomiting, fever or cough. Treatment IMPLEMENTATION ENGINEER: None. PAST MEDICAL HX: Immunizations: up-to-date. SOCIAL HX: Heavy tobacco smoker (cigarette)- less than 1 pack per day. History of drug use: marijuana. Recently used drugs just prior to arrival. No alcohol use. No infectious disease exposure. ABUSE ASSESSMENT: No report of abuse. SELF HARM ASSESSMENT: A self harm assessment was performed. The patient answered "no" to the question "Do you have thoughts of harming or killing yourself?" and "Have you recently had thoughts about harming or killing others?". FALL RISK ASSESSMENT: Fall risk assessment completed. No fall risk identified. NUTRITIONAL RISK ASSESSMENT: The nutritional risk assessment revealed no deficiencies. FUNCTIONAL ASSESSMENT: Functional assessment: no impairments noted. LEARNING NEEDS ASSESSMENT: The learning needs assessment revealed no barriers. SKIN INTEGRITY ASSESSMENT: Skin integrity risk assessment completed. No skin integrity risk identified. --18:57 Roseline Mcnamara R.N. ADDITIONAL SURGERIES: Appendectomy. Back Surgery. Brain surgery - malformation. Breast benign cyst removed. Carpal Tunnel Surgery. Cholecystectomy. . Gallbladder Surgery. Hysterectomy. Knee Surgery. Multiple hand surgeries. Shoulder Surgery. --18:53 Roseline Mcnamara R.N. Interventions ID band on patient. --18:57 Roseline Mcnamara R.N. PHYSICAL ASSESSMENT Ambulatory to room. GENERAL / NEURO / PSYCH: Alert. Oriented X 4. Appears in pain and anxious. HEENT: Mucous membranes are pink. RESPIRATORY: Respirations not labored. Chest nontender. Breath sounds within normal limits. CVS: Pulses within normal limits. Capillary refill less than 2 seconds. GI / : The patient has had nausea. Abdomen soft and nontender. EXTREMITIES: No lower extremity edema. SKIN: Skin is warm and dry. Normal skin turgor. --18:59 Roseline Mcnamara R.N. NURSING PROGRESS NOTES 18:56 07/28/2016 Site #1 started via IV in the left hand with an 20g angiocath; one attempt. Blood drawn: rainbow set. Labeled in the presence of the patient and sent to the lab. --19:01 Roseline Mcnamara R.N. The initial plan of care for this patient has been created This plan of care was discussed with the patient. Monitoring of patient in place. EKG time: (1857 PM). EKG was performed by a tech and shown to the ED physician. Patient ID band checked for patient name, birthdate and medical record number: patient confirmed. Blood samples drawn from the left hand by nurse per protocol ; labeled in presence of the patient: rainbow set. Patient gowned. Warming measures: blanket applied. Reassurance given. Patient identifiers checked. Call light placed in reach. Side rails up x 1. Bed placed in lowest position. Brakes of bed on. --19: Roseline Mcnamara R.N. Patient ready for evaluation- ED physician notified. --19: Roseline Mcnamara R.N. 19:03 07/28/2016 Aspirin PO Capsules 325 mg given. Allergies verified and confirmed 5 rights. --19:13 Roseline Mcnamara R.N. 19:26 07/28/16. BP: 125/84 taken on the left arm, via an automated monitor, while lying. HR: 88. RR: 15. O2 saturation: 98%. Pain level now: 07/29. --19:27 Roseline Mcnamara R.N. Cardiac rhythm: normal sinus rhythm. news assistant, pulse oximeter and NIBP monitor placed on patient. Reassurance given. GENERAL / NEURO / PSYCH: The patient reports anxiety. HEENT: The patient reports headache. RESPIRATORY: Denies difficulty breathing. CVS: The patient reports chest pain. GI / : The patient reports nausea. Call light placed in reach. --19:27 Roseline Mcnamara R.N. 19:45 07/28/16. BP: 146/76 (regular adult cuff) taken on the left arm, via an automated monitor, while lying. HR: 84. RR: 14. O2 saturation: 98%. Pain level now: 05/29. --19:53 Roseline Mcnamara R.N. ( Pt states feeling "better less pain and pressure" waiting on lab work to be returned. Will monitor). GENERAL / NEURO / PSYCH: The patient reports anxiety. HEENT: The patient reports headache. RESPIRATORY: Denies difficulty breathing. CVS: Denies chest pain. GI / : Denies nausea. --19:53 Roseline Mcnamara R.N. 20:27 07/28/2016 Insulin Reg Subcutaneous 2 unit given. Given in the right deltoid. Allergies verified and confirmed 5 rights. --20:29 Martha Chan R.N. 21:06 07/28/2016 Morphine IVP 4 mg given over 1 minute(s) via site #1. Allergies verified, confirmed 5 rights and sedative warning given to the patient. IV patency established. IV site checked: no pain, redness, or swelling. IV flushed thoroughly pre- and post-medication administration. IVP given by RN. --21:06 Roseline Mcnamara R.N. DISPOSITION / DISCHARGE Cardiac rhythm: normal sinus rhythm. Condition at departure: improved and stable. No learning barriers present. Discharge instructions provided and reviewed with the patient and spouse. Reviewed medication(s) side effects, precautions, dosing and course information. Prescription(s) given to the patient. Patient verbalized understanding. Written instructions provided in Y[place]ut. No treatment instructions or referrals given to the patient. The patient was discharged by the physician. She was discharged home and accompanied by spouse and parent. She left the Emergency Department ambulatory and via private vehicle. Spouse driving. --21:11 Roseline Mcnamara R.N. 21:06 07/28/16. BP: 150/63. HR: 81. RR: 14. Temp: 98.1 F. Pain level now: 05/29. --21:11 Roseline Mcnamara R.N. Departure time: 2049 PM. --21:24 Roseline Mcnamara R.N. 20:54 07/28/16. O2 saturation: 98% on room air. --21:24 Roseline Mcnamara R.N. Locked/Released at 07/28/2016 21:24 by Roseline Mcnamara R.N.
--- NOTE | 2016-07-28 21:25 | ED MED RECONCILIATION SUMMARY ---
Patient: SIM BRITT Medication Reconciliation Report [facility] VisitID: [id number] [address] [place] [address] 50y, F Registration Date/Time: 07/28/2016 Weight: 63.5 kg Height/Length: 62 in. BMI: 25.6 ALLERGIES: Demerol, plastic tape , Reglan The patient's Home Medications are listed below: CONTINUE TAKING THE FOLLOWING MEDICATIONS: HumaLOG Subcutaneous per sliding scale, 1 unit drops BS by 200 pts Lantus Subcutaneous 15units , every AM Lyrica Oral (75 mg) 1 capsule, bid Protonix Oral The source(s) of the original Home Medication information: patient The following Medications were given to the patient in the Emergency Department: Aspirin [PO] PO 325 mg, administered: 07/28/2016 7:03:00 PM Insulin Reg [Subcutaneous] Subcutaneous 2 unit, administered: 07/28/2016 8:27:00 PM Morphine [IVP] IVP 4 mg, administered: 07/28/2016 9:06:00 PM The following Medications were prescribed to the patient: Tramadol 50 mg: take 1 orally every 6 hours as needed for pain and stiffness. Do not take more than 8 tablets in a 24 hour period. Dispense twenty (20). No refills. -- Cecilio Aranda Dr.
--- NOTE | 2016-07-28 21:25 | ED MED RECONCILIATION SUMMARY ---
Patient: SIM BRITT Medication Reconciliation Report [facility] VisitID: [id number] [address] [place] [address] 50y, F Registration Date/Time: 07/28/2016 Weight: 63.5 kg Height/Length: 62 in. BMI: 25.6 ALLERGIES: Demerol, plastic tape , Reglan The patient's Home Medications are listed below: CONTINUE TAKING THE FOLLOWING MEDICATIONS: HumaLOG Subcutaneous per sliding scale, 1 unit drops BS by 200 pts Lantus Subcutaneous 15units , every AM Lyrica Oral (75 mg) 1 capsule, bid Protonix Oral The source(s) of the original Home Medication information: patient The following Medications were given to the patient in the Emergency Department: Aspirin [PO] PO 325 mg, administered: 07/28/2016 7:03:00 PM Insulin Reg [Subcutaneous] Subcutaneous 2 unit, administered: 07/28/2016 8:27:00 PM Morphine [IVP] IVP 4 mg, administered: 07/28/2016 9:06:00 PM The following Medications were prescribed to the patient: Tramadol 50 mg: take 1 orally every 6 hours as needed for pain and stiffness. Do not take more than 8 tablets in a 24 hour period. Dispense twenty (20). No refills. -- Cecilio Aranda Dr.
--- NOTE | 2016-07-28 21:25 | ED MAR SUMMARY ---
..... Medication Administration Record [facility] [address] [place] [address] Patient: SIM BRITT Visit ID: [id number] 50y, F Weight: 63.5 kg Height/Length: 62 in BMI: 25.6 ALLERGIES: Demerol, plastic tape , Reglan Given 19:03 07/28/2016 Roseline Mcnamara R.N. Medication Administered: ASPIRIN [PO], Dose: 325 mg Capsules PO. Medication Ordered: Aspirin PO 324 mg (NOW). Given 20:27 07/28/2016 Martha Chan R.N. Medication Administered: INSULIN REG [SUBCUTANEOUS], Dose: 2 unit Subcutaneous. Medication Ordered: Insulin Reg Subcut 2 units (HIGH ALERT MEDICATION, NOW). Given 21:06 07/28/2016 Roseline Mcnamara R.N. Medication Administered: MORPHINE [IVP], Dose: 4 mg IVP over 1 minute(s), Site: #1 left hand. Medication Ordered: Morphine IV 4 mg (HIGH ALERT MEDICATION, NOW).
--- NOTE | 2016-07-28 21:25 | ED DISCHARGE INSTRUCTIONS ---
Patient: SIM BRITT General Instructions [facility] VisitID: [id number] [address] [place] [address] 50y, F Registration Date/Time: 07/28/2016 Muscle strain of the left pectoralis major at the shoulder. Type 2 diabetes with hyperglycemia. INSTRUCTIONS No lifting greater than 10 lbs until well. Your Current Medications: CONTINUE TAKING THE FOLLOWING MEDICATIONS: HumaLOG Subcutaneous : per sliding scale, 1 unit drops BS by 200 pts. Lantus Subcutaneous : 15units every AM. Lyrica Oral : Capsule 75 mg, 1 capsule bid. Protonix Oral. Prescription Medications: Tramadol 50 mg: take 1 orally every 6 hours as needed for pain and stiffness. Do not take more than 8 tablets in a 24 hour period. Dispense twenty (20). No refills. Follow-up: Follow up with your doctor in about two days. Call for an appointment. Screening today revealed the patient's blood pressure to be in the hypertensive range. The patient should follow up with a primary care provider for blood pressure management. ADDITIONAL INFORMATION Diabetes with High Blood Sugar You have been treated for high blood sugar (hyperglycemia). This may be becauseof an infection or other illness;eating too many sweets or starches ; not taking enough insulin. Home care High blood sugar may cause symptoms that you can learn to recognize, such as these: If you feel like your blood sugar may be too high, measure it using a blood or urine test. If it is above your usual range, use the "sliding scale"rRegular insulin dose your doctor gave you to correct this. If no "sliding scale" orders were given, contact your doctor for further advice. If your blood sugar is over 300, and you can't reach your doctor, go to the hospital emergency room. Monitor and write down your blood sugars - and insulin dose, if you take insulin - atleast twice a day. Do this before breakfast and before dinner. Do this for the next 3 to 5 days. Follow-up care Follow up with your health care provderduring the next week to review your blood sugar records. You will find out if you need to adjust your dose of insulin or other medicine for blood sugar. When to seek medical care Get prompt medical attention if either of these occur: High blood sugar.Symptoms are frequent urination, feeling dizzy, thirst, headache, nausea or vomiting, abdominal pain, and drowsiness or loss of consciousness. Low blood sugar. Symptoms are fatigue, headache, shakes, excess sweating, hunger, anxiety, reduced vision, drowsiness, weakness, confusion or loss of consciousness, and seizure. Muscle Strain,Extremity A MUSCLE STRAIN is a stretching and tearing of muscle fibers. This causes pain, especially with motion of that muscle. There may also be some swelling and bruising. Home Care: 1) Keep the injured area raised to reduce pain and swelling. This is especially important during the first 48 hours. 2) Make an ice pack (ice cubes in a plastic bag, wrapped in a towel) and apply for 20 minutes every 1-2 hours the first day. You should continue with ice packs 3-4 times a day for the second and third days. Unless otherwise instructed, on the fourth day you may begin hot soaks or hot packs (small towel soaked in hot water) 3-4 times a day while you gently exercise the involved area. 3) You may use acetaminophen (Tylenol) or ibuprofen (Motrin, Advil) to control pain, unless another medicine was prescribed. [ NOTE : If you have chronic liver or kidney disease or ever had a stomach ulcer or GI bleeding, talk with your doctor before using these medicines.] 4) For LEG STRAINS: If CRUTCHES have been recommended, do not bear full weight on the injured leg until you can do so without pain. You may return to sports when you are able to hop and run on the injured leg without pain. Follow Up with your doctor or this facility if you are not improving within the next five days. Get Prompt Medical Attention if any of the following occur: -- Fingers or toes become swollen, cold, blue, numb or tingly -- Pain or swelling increases Tramadol Hydrochloride Oral tablet What is this medicine? TRAMADOL (TRA ma dole) is a pain reliever. It is used to treat moderate to severe pain in adults. How should I use this medicine? Take this medicine by mouth with a full glass of water. Follow the directions on the prescription label. If the medicine upsets your stomach, take it with food or milk. Do not take more medicine than you are told to take. Talk to your [employer] regarding the use of this medicine in children. Special care may be needed. What side effects may I notice from receiving this medicine? Side effects that you should report to your doctor or health life care planner as soon as possible: allergic reactions like skin rash, itching or hives, swelling of the face, lips, or tongue breathing difficulties, wheezing confusion itching light headedness or fainting spells redness, blistering, peeling or loosening of the skin, including inside the mouth seizures Side effects that usually do not require medical attention (report to your doctor or health life care planner if they continue or are bothersome): constipation dizziness drowsiness headache nausea, vomiting What may interact with this medicine? Do not take this medicine with any of the following medications: MAOIs like Carbex, Eldepryl, Marplan, Nardil, and Parnate This medicine may also interact with the following medications: alcohol or medicines that contain alcohol antihistamines benzodiazepines bupropion carbamazepine or oxcarbazepine clozapine cyclobenzaprine digoxin furazolidone linezolid medicines for depression, anxiety, or psychotic disturbances medicines for migraine headache like almotriptan, eletriptan, frovatriptan, naratriptan, rizatriptan, sumatriptan, zolmitriptan medicines for pain like pentazocine, buprenorphine, butorphanol, meperidine, nalbuphine, and propoxyphene medicines for sleep muscle relaxants naltrexone phenobarbital phenothiazines like perphenazine, thioridazine, chlorpromazine, mesoridazine, fluphenazine, prochlorperazine, promazine, and trifluoperazine procarbazine warfarin What if I miss a dose? If you miss a dose, take it as soon as you can. If it is almost time for your next dose, take only that dose. Do not take double or extra doses. Where should I keep my medicine? Keep out of the reach of children. Store at room temperature between 15 and 30 degrees C (59 and 86 degrees F). Keep container tightly closed. Throw away any unused medicine after the expiration date. What should I tell my health care provider before I take this medicine? They need to know if you have any of these conditions: brain tumor depression drug abuse or addiction head injury if you frequently drink alcohol containing drinks kidney disease or trouble passing urine liver disease lung disease, asthma, or breathing problems seizures or epilepsy suicidal thoughts, plans, or attempt; a previous suicide attempt by you or a family member an unusual or allergic reaction to tramadol, codeine, other medicines, foods, dyes, or preservatives or trying to get breast-feeding What should I watch for while using this medicine? Tell your doctor or health life care planner if your pain does not go away, if it gets worse, or if you have new or a different type of pain. You may develop tolerance to the medicine. Tolerance means that you will need a higher dose of the medicine for pain relief. Tolerance is normal and is expected if you take this medicine for a long time. Do not suddenly stop taking your medicine because you may develop a severe reaction. Your body becomes used to the medicine. This does NOT mean you are addicted. Addiction is a behavior related to getting and using a drug for a non-medical reason. If you have pain, you have a medical reason to take pain medicine. Your doctor will tell you how much medicine to take. If your doctor wants you to stop the medicine, the dose will be slowly lowered over time to avoid any side effects. You may get drowsy or dizzy. Do not drive, use machinery, or do anything that needs mental alertness until you know how this medicine affects you. Do not stand or sit up quickly, especially if you are an older patient. This reduces the risk of dizzy or fainting spells. Alcohol can increase or decrease the effects of this medicine. Avoid alcoholic drinks. You may have constipation. Try to have a bowel movement at least every 2 to 3 days. If you do not have a bowel movement for 3 days, call your doctor or health life care planner. Your mouth may get dry. Chewing sugarless gum or sucking hard candy, and drinking plenty of water may help. Contact your doctor if the problem does not go away or is severe. You have been given the following additional information: Diabetic Hyperglycemia Muscle Strain, Extremity Tramadol Hydrochloride Oral tablet No lifting greater than 10 lbs until well. (Electronically signed by Cecilio Aranda Dr. 07/28/2016 20:37)
--- NOTE | 2016-07-28 21:25 | ED MAR SUMMARY ---
..... Medication Administration Record [facility] [address] [place] [place] [address] Patient: SIM BRITT Visit ID: [id number] 50y, F Weight: 63.5 kg Height/Length: 62 in BMI: 25.6 ALLERGIES: Demerol, plastic tape , Reglan Given 19:03 07/28/2016 Roseline Mcnamara R.N. Medication Administered: ASPIRIN [PO], Dose: 325 mg Capsules PO. Medication Ordered: Aspirin PO 324 mg (NOW). Given 20:27 07/28/2016 Martha Chan R.N. Medication Administered: INSULIN REG [SUBCUTANEOUS], Dose: 2 unit Subcutaneous. Medication Ordered: Insulin Reg Subcut 2 units (HIGH ALERT MEDICATION, NOW). Given 21:06 07/28/2016 Roseline Mcnamara R.N. Medication Administered: MORPHINE [IVP], Dose: 4 mg IVP over 1 minute(s), Site: #1 left hand. Medication Ordered: Morphine IV 4 mg (HIGH ALERT MEDICATION, NOW).
== END 2016-07-28 21:15 | disposition home or self-care (01) ==
LOC: ED SRH 18:41
DX: S46.812A Strain of other muscles, fascia and tendons at shoulder and upper arm level, left arm, initial encounter (principal); E11.65 Type 2 diabetes mellitus with hyperglycemia; X58.XXXA Exposure to other specified factors, initial encounter; Y93.9 Activity, unspecified; Y99.9 Unspecified external cause status; Y92.9 Unspecified place or not applicable; F17.210 Nicotine dependence, cigarettes, uncomplicated
CPT/HCPCS: 90100; 90616; 92610; 92720; 95059